=== PATIENT | female | born 1955 | race Native Hawaiian/Other Pacific Islander ===

== ENCOUNTER 2021-06-03 06:16 | Outpatient (CLI) | payer MEDICARE, MEDICAID ==
[~2021-06-03] VITALS: Ht 167.7 cm; Wt 111.8 kg
[~2021-06-03 06:16] MED LIST: ALBU0.632 IH; ALBU17AE3 IH; ALPR1T PO; ASP325TEC PO; CLON-378 PO; DCS100C PO; ESTR1TAB24 PO; FURO40TA4 PO; HYDR-2890 PO; IBP800T PO; MEDR5TAB PO; MULT1CAP27 PO; NCT21TD TOP; POTA8TAB PO; [UNRECOGNIZED DRUG - CODE] PO
[2021-06-04] MEDS ORDERED: MTP25TSR PO (11:54)
[2021-06-04] MEDS ORDERED: LORA10TA7 PO (11:54)
[2021-06-04] MEDS ORDERED: RT-ALBUINH IH (11:54)
[2021-06-04] MEDS ORDERED: CYCL5TAB PO (11:54)
[2021-06-04] MEDS ORDERED: OMEP20TA7 PO (11:54)
[2021-06-04] MEDS ORDERED: POTA-51 PO (11:54)
[2021-06-04] MEDS ORDERED: APIX5TAB PO (11:54)
[2021-06-04] MEDS ORDERED: DILT240T10 PO (11:54)
[2021-06-04] MEDS ORDERED: ASPI-999 PO (11:54)
[2021-06-04] MEDS ORDERED: LISI20TA26 PO (11:54)
[2021-06-04] MEDS ORDERED: FURO20TA4 PO (11:54)
[2021-06-04] MEDS ORDERED: ALBU0.63 IH (11:54)
== END 2021-06-04 11:58 | disposition home or self-care (01) ==
LOC: PREOP 06:16
PROVIDERS: ATTEND Specialist
DX: Z01.818 Encounter for other preprocedural examination (principal)

== ENCOUNTER 2021-06-07 08:44 | Day surgery (SDC) | payer MEDICARE, MEDICAID ==
[~2021-06-07] VITALS: Ht 167 cm; Wt 111.8 kg
[~2021-06-07 08:44] MED LIST changes: +ALBU0.63 IH; +APIX5TAB PO; +ASPI-999 PO; +CYCL5TAB PO; +DILT240T10 PO; +FURO20TA4 PO; +LISI20TA26 PO; +LORA10TA7 PO; +MTP25TSR PO; +OMEP20TA7 PO; +POTA-51 PO; +RT-ALBUINH IH
[2021-06-07] MEDS: TETRACAINE 0.5% OPHTH SOLN 4 ML BTL (SINGLE DOSE ONLY) OU PRN ×4 (09:28→09:46)
[2021-06-07] MEDS ORDERED: POVIDONE (BETADINE) OPHTH SOLN 5% 30 ML OP ONE (09:30)
[2021-06-07] MEDS ORDERED: TIMOLOL MALEATE 0.5% 5 ML (TIMOPTIC) BTL OU PRN (09:30)
[2021-06-07] MEDS ORDERED: MOXIFLOXACIN OPHTH SOLN 5 MG/ML 0.3 ML SYRINGE OP ONE (09:30)
[2021-06-07] MEDS ORDERED: LIDOCAINE PF 1% 2 ML VIAL IR PRN (09:30)
[2021-06-07] MEDS: PHENYLEPHRINE 10% OPHTH (NEO-SYN) 5 ML BTL OU SCH ×3 (09:36→09:46)
[2021-06-07] MEDS: TROPICAMIDE 1% OPH SOLN (MYDRIACYL) 15 ML BTL OP SCH ×3 (09:36→09:46)
[2021-06-07 09:54] VITALS: BP 100/70
[2021-06-07] MEDS ORDERED: MIDAZOLAM 2 MG/2 ML (VERSED) VIAL ONE (09:56)
--- NOTE | 2021-06-07 10:06 | Ophthalmologist Pre-Op Note ---
Pre-Operative Progress Note H&P Reviewed The H&P was reviewed, patient examined and no changes noted. Date H&P Reviewed: Jun 07, 2021 Time H&P Reviewed: 10:05 Pre-Op Dx Cataract, Right Eye NATHAN PIERRE MD Jun 07, 2021 10:06
--- NOTE | 2021-06-07 10:31 | Ophthalmology Operative Report ---
Cataract removal/placement IOL PREOPERATIVE DIAGNOSIS: Cataract Right Eye POSTOPERATIVE DIAGNOSIS: Cataract Right Eye PROCEDURE: Cataract removal and placement of posterior chamber implant, right eye SURGEON: Mingo Pierre ANESTHESIA: Topical with sedation COMPLICATIONS: None ESTIMATED BLOOD LOSS: Minimal DESCRIPTION OF PROCEDURE: After proper informed consent was obtained, the patient, a [id number] female, was taken to the Operating Room and the right eye was anesthetized with tetracaine. The right eye was then prepped and draped in the usual manner. A wire lid speculum was placed. A paracentesis was made at the left hand position. Preservative free lidocaine was injected into the anterior chamber followed by viscoelastic. A clear corneal incision was made in the temporal position. A capsulorrhexis was preformed and the central nuclear and cortical material were removed. The posterior capsule was polished and Miguel Angel 18.0 [id number] IOL was placed into the capsular bag. The residual viscoelastic was aspirated and balanced saline solution was injected into the anterior chamber. The wound was checked and found to be water tight. The patient tolerated the procedure well without complications. MINGO PIERRE MD Jun 07, 2021 10:31
[2021-06-07 10:39] VITALS: BP 104/71
[2021-06-07] MEDS ORDERED: acetaZOLAMIDE ER 500 MG CAP (DIAMOX SEQUELS) PO ONE (11:00)
--- NOTE | 2021-06-07 14:03 | Anesthesia-General Post-Op ---
MAC Patient Condition Mental Status/LOC: Same as Preop Cardiovascular: Satisfactory Nausea/Vomiting: Absent Respiratory: Satisfactory Pain: Controlled Complications: Absent Post Op Complications Complications None Follow Up Care/Instructions Patient Instructions None needed. Anesthesiology Discharge Order Discharge Order Patient was seen after the procedure and she was doing well, no complaints, stable vital signs, no apparent adverse anesthesia problems. BRANDI MORATAYA DO Jun 07, 2021 14:03
== END 2021-06-07 10:40 ==
LOC: SDC 08:44
PROVIDERS: ATTEND Specialist
DX: H25.11 Age-related nuclear cataract, right eye (principal); I10 Essential (primary) hypertension; I48.91 Unspecified atrial fibrillation; K21.9 Gastro-esophageal reflux disease without esophagitis; E66.01 Morbid (severe) obesity due to excess calories; F17.210 Nicotine dependence, cigarettes, uncomplicated; Z68.41 Body mass index [BMI] 40.0-44.9, adult; Z79.82 Long term (current) use of aspirin; Z79.899 Other long term (current) drug therapy
CPT/HCPCS: 66984; V2632

== ENCOUNTER → 2021-08-20 | Outpatient (CLI) | payer MEDICARE, MEDICAID | END | disposition home or self-care (01) | LOC: PREOP 06:53 | PROVIDERS: ATTEND Specialist | DX: Z01.818 Encounter for other preprocedural examination (principal) ==